=== PATIENT | male | born 1995 | race Caucasian/White ===

== ENCOUNTER 2016-02-24 13:31 | Emergency (ER) | payer OTHER ==
[~2016-02-24] VITALS: Ht 175.3 cm; Wt 73.0 kg
[~2016-02-24 13:31] MED LIST: NOHOMEMEDS
[2016-02-24 13:38] VITALS: BP 120/46
== END 2016-02-24 15:32 | disposition home or self-care (01) ==
LOC: EME 13:31
DX: S06.0X0A Concussion without loss of consciousness, initial encounter (principal); V00.311A Fall from snowboard, initial encounter; Y93.23 Activity, snow (alpine) (downhill) skiing, snowboarding, sledding, tobogganing and snow tubing
CPT/HCPCS: 70450; 99281; 99284